=== PATIENT | male | born 1990 | race Hispanic/Latino ===

== ENCOUNTER 2017-07-09 22:22 | Emergency (ER) | payer SELFPAY ==
[~2017-07-09] VITALS: Ht 157.5 cm; Wt 66.8 kg
[2017-07-09 22:33] VITALS: BP 122/75
== END 2017-07-09 23:00 | disposition left against medical advice (07) ==
LOC: EME 22:22
DX: Z76.0 Encounter for issue of repeat prescription (principal); Z53.21 Procedure and treatment not carried out due to patient leaving prior to being seen by health care provider